=== PATIENT | male | born 1995 | race Hispanic/Latino ===

== ENCOUNTER 2016-11-04 20:40 | Emergency (ER) | payer OTHER ==
[~2016-11-04] VITALS: Ht 175.3 cm; Wt 100.6 kg
[~2016-11-04 20:40] MED LIST: ESCI10TA2 PO; TRAZO50TA PO
[2016-11-04 20:41] VITALS: BP 131/61
[2016-11-04] MEDS ORDERED: KETOROLAC 60 MG/2 ML VIAL (J1885) IM ONE (21:00)
[2016-11-04] MEDS ORDERED: NAPR500T PO ×2 (21:44→21:47)
[2016-11-04] MEDS ORDERED: CYCL10TA PO ×2 (21:44→21:47)
--- NOTE | 2016-11-05 09:58 | REP ---
THORACIC SPINE SERIES, COMPLETE: 11/04/2016 CLINICAL HISTORY: Trauma, back pain. FINDINGS: Three views performed including coned lateral view of the cervicothoracic junction. AP view shows no scoliosis. Pedicles, spinous and transverse processes along the posterior rib and medial clavicle articulations. There is no compression deformity, disc space narrowing or focal bone lesion. On a lateral view of the cervical thoracic junction aligns normally. IMPRESSION: Negative thoracic spine series. Signed by Elieser Baez MD 11/05/2016 07:50 P
== END 2016-11-04 21:52 | disposition home or self-care (01) ==
LOC: M ED 21:42
DX: M54.6 Pain in thoracic spine (principal); F17.200 Nicotine dependence, unspecified, uncomplicated
CPT/HCPCS: 36415; 72072; 99282; J1885